=== PATIENT | male | born 1945 | race Caucasian/White ===

== ENCOUNTER → 2016-05-29 | Outpatient (CLI) | payer MEDICARE ==
--- NOTE | 2016-05-29 13:08 | XR ---
EXAMINATION TYPE: XR KUB DATE OF EXAM: 05/29/2016 11:56 AM CLINICAL HISTORY: Bladder stone per patient treated with lithotripsy February. Back pain currently pe r patient. TECHNIQUE: 2 supine KUB images of the abdomen are. COMPARISON: CT urogram January 26, 2016. FINDINGS: There is 4 mm calculus mid to lower pole level right kidney redemonstrated felt stable. Jose tral calcifications left kidney are vascular in etiology on comparison CT. There is interval marked i mprovement in large posterior dependent bladder calculus after lithotripsy. Some small rounded densit ies in the pelvis favor phleboliths. There is overall nonobstructive bowel gas pattern. Lung bases are clear. Multilevel spurring in the t horacolumbar spine is redemonstrated. IMPRESSION: Interval successful lithotripsy of large bladder calculus.
== END ==
LOC: RADXRMAIN 11:37
PROVIDERS: ATTEND Urology
DX: N21.0 Calculus in bladder (principal)
CPT/HCPCS: 74000

== ENCOUNTER → 2016-05-30 | Outpatient (CLI) | payer MEDICARE ==
--- NOTE | 2016-05-30 10:58 | US ---
EXAMINATION TYPE: US abdomen limited DATE OF EXAM: 05/30/2016 10:41 AM COMPARISON: NONE CLINICAL HISTORY: Abdominal Aortic Aneurysm I71.4. EXAM MEASUREMENTS: There is a focal area of aneurysm involving the distal the mid aorta with a questi onable intimal flap. Measures a maximal dimension of 4.2 cm. Additional areas of atherosclerotic sosa ges are seen. Remaining portion of the aorta demonstrates no sizable aneurysm. Report was immediately telephoned to the patient's physician. CT stat of the aorta recommended. IMPRESSION: 1. Abnormal ultrasound which appears represent a 4.2 cm aneurysm increased in size from the previous CT urogram measured 3.1 cm. On today's exam is a question of an intimal flap or calcified plaque. A l ocalized dissection is not excluded. Stat CT scan recommended.
== END | disposition home or self-care (01) ==
LOC: RADUSWWP 10:12
PROVIDERS: ATTEND Family Medicine
DX: I71.4 Abdominal aortic aneurysm, without rupture (principal)
CPT/HCPCS: 93979

== ENCOUNTER → 2016-05-30 | Outpatient (CLI) | payer MEDICARE ==
[2016-05-30 14:43] LABS: Blood Urea Nitrogen 22 mg/dL (9-20); Non-African American GFR(MDRD) >60 (>60 ml/min/1.73 sqM)
--- NOTE | 2016-05-30 15:46 | CT ---
EXAMINATION TYPE: CT angio abd aorta wo/w con DATE OF EXAM: 05/30/2016 3:32 PM COMPARISON: Aortic ultrasound earlier today. CT urogram January 26, 2016. HISTORY: AAA, abnormal ultrasound CT DLP: 2254 mGycm, Automated Exposure Control for Dose Reduction was Utilized. CONTRAST: CTA scan of the abdomen and pelvis is performed without oral and without and with IV Contrast, patien t injected with 100 ml mL of Omnipaque 350. Three-D reconstructed images are created on independent w orkstation and reviewed FINDINGS: VASCULAR: There is moderate mixed plaque in the abdominal aorta redemonstrated. No linear hypodensity to suggest dissection is evident. There is aneurysm measuring up to 3.1 x 2.8 cm transversely on axi al image 46 redemonstrated not significantly changed from CT. No aneurysm narrowing 4.2 cm this ident ified as suspected on recent ultrasound, suspect false measurement related to obliquity. Some promine nce of the common iliac arteries bilaterally is present. There is satisfactory flow in the common as well as internal and external iliac arteries as well as in the common and proximal superficial and de ep femoral arteries bilaterally without significant stenosis. There is patent celiac axis, SMA, bilat eral single renal arteries, and MALENA identified. No greater than 50% stenosis is seen. LUNG BASES: Dependent atelectatic change in both lung bases is redemonstrated.. LIVER/GB: No significant abnormality is appreciated. PANCREAS: No significant abnormality is seen. SPLEEN: No significant abnormality is seen. ADRENALS: No significant abnormality is seen. KIDNEYS: There is stable 4 mm calculus posteriorly mid to lower pole level right kidney on axial imag e 39. There is stable 2 cm simple appearing cyst posterior medially upper to mid pole level left kidn ey on series 11 image 34. Bladder is not greatly distended tended. There is mild to moderate concentr ic wall thickening with mild surrounding fat stranding, a cystitis needs to BE considered in appropri ate clinical setting. Otherwise other etiologies need to be excluded. Right-sided pelvic phlebolith i s redemonstrated. BOWEL: Sigmoid colonic diverticulosis is redemonstrated. PROSTATE/SEMINAL VESICLES: Central zone calcifications are seen in normal size prostate gland. LYMPH NODES: No greater than 1cm abdominal or pelvic lymph nodes are appreciated. OSSEOUS STRUCTURES: Multilevel spurring in the spine is redemonstrated. Facet arthropathy lower lumba r levels is noted. OTHER: No significant additional abnormality is seen. IMPRESSION: Stable 3.1 cm aneurysm to the abdominal aorta. Attention to bladder, clinical correlation for acute cystitis advised.
== END | disposition home or self-care (01) ==
LOC: RADCTMAIN 13:51
PROVIDERS: ATTEND Family Medicine
DX: I71.4 Abdominal aortic aneurysm, without rupture (principal)
CPT/HCPCS: 82565; 84520; 75635; 36415; Q9967; 93979

== ENCOUNTER 2018-01-02 10:41 | Day surgery (SDC) | payer MEDICARE ==
[2017-12-31 11:22] VITALS: BMI 31.6
[2018-01-02 11:15] VITALS: RESP 16; TEMP 97.3
[2018-01-02] MEDS ORDERED: LACTATED RINGERS 1,000 ML IV ONE (11:18)
[2018-01-02] MEDS ORDERED: LIDOCAINE 1% 20 ML VIAL (10MG/ML) FOR IV START INTRADERMA ONE (11:19)
[2018-01-02] MEDS ORDERED: PROPOFOL 10 MG/ML 20 ML VIAL IV ONE (11:54)
[2018-01-02] MEDS ORDERED: LIDOCAINE 1% INJ 10MG/ML (20 ML MDV) ONE (11:54)
--- NOTE | 2018-01-02 12:08 | P.PCN ---
Date of Procedure: 01/02/18 Procedure(s) Performed: BRIEF HISTORY: Patient is a 72-year-old pleasant male, scheduled for an elective colonoscopy as a part of value should of prior history of colon polyps. Colonoscopy was in 5 years ago. PROCEDURE PERFORMED: Colonoscopy. PREOPERATIVE DIAGNOSIS: History of colon polyps. IV sedation per Anesthesia. PROCEDURE: After informed consent was obtained, the patient, was brought into the endoscopy unit. IV sedation was administered by Anesthesia under continuous monitoring. Digital rectal examination was normal. Initially the Olympus CF- 160 flexible video colonoscope was then inserted in the rectum, gradually advanced into the cecum without any difficulty. Careful examination was performed as the scope was gradually being withdrawn. Ileocecal valve and the appendiceal orifice were visualized and appeared normal. Prep was excellent. Mucosa of the cecum, ascending colon, transverse colon, descending colon, sigmoid colon, and rectum appeared normal. Scattered sigmoid diverticulosis. Retroflexion was performed in the rectum and no lesions were seen. The patient tolerated the procedure well. IMPRESSION: Normal-appearing colon from rectum to cecum with no evidence of colorectal neoplasia. Scattered sigmoid diverticulosis. RECOMMENDATIONS: Findings of this examination were discussed with the patient as well as his family. He was advised to have a repeat surveillance colonoscopy in 5 years because of the prior history of colon polyps..
[2018-01-02] MEDS ORDERED: LACTATED RINGERS 1,000 ML IV SCH (12:16)
[2018-01-02] MEDS ORDERED: LIDOCAINE 1% 20 ML VIAL (10MG/ML) FOR IV START INTRADERMA PRN (12:16)
[2018-01-02 12:41] VITALS: BP 184/89; PULSE 51
== END 2018-01-02 12:57 | disposition home or self-care (01) ==
LOC: ORWHC2ENDO 10:41
PROVIDERS: ATTEND Internal Medicine Gastroenterology
DX: K57.30 Diverticulosis of large intestine without perforation or abscess without bleeding (principal); N40.0 Benign prostatic hyperplasia without lower urinary tract symptoms; I10 Essential (primary) hypertension; E78.5 Hyperlipidemia, unspecified; Z79.899 Other long term (current) drug therapy; Z86.010 Personal history of colon polyps; Z87.891 Personal history of nicotine dependence
CPT/HCPCS: 45378; J2001; J2704

== ENCOUNTER → 2023-08-28 | Outpatient (CLI) | payer MEDICARE ==
[2023-08-28 09:11] LABS: African American GFR (CKD) 83 (>60 ml/min/1.73 sqM); Blood Urea Nitrogen 20 mg/dL (9-20); Non-African American GFR(CKD) 72 (>60 ml/min/1.73 sqM)
--- NOTE | 2023-08-28 10:32 | CT ---
EXAMINATION TYPE: CT chest w con DATE OF EXAM: 08/28/2023 COMPARISON: None HISTORY: Chronic cough CT DLP: 736 mGycm Automated exposure control for dose reduction was used. CONTRAST: CT scan of the chest is performed with IV Contrast, patient injected with 100 mL of Isovue 300. FINDINGS: LUNGS: The lungs are grossly clear, there is no concerning parenchymal mass or nodule identified. T here is no pleural effusion or pneumothorax seen. The tracheobronchial tree is patent. MEDIASTINUM: There are no greater than 1 cm hilar or mediastinal lymph nodes. No pericardial effusi on is seen. Aorta is of normal caliber. There is irregular plaque noted at the level of the aortic ar ch seen best on image 20 of 69. No definite dissection noted at this point in time however this could develop into a dissection. I do recommend CTA of the thoracic aorta and 24 hours. Mural plaque noted within the descending thoracic aorta. Mild cardiomegaly. Small hiatal hernia noted. UPPER ABDOMEN: No significant abnormality appreciated. OTHER: No additional significant abnormality is seen. IMPRESSION: 1.There is irregular plaque noted at the level of the aortic arch seen best on image 20 of 69. No def inite dissection noted at this point in time however this could develop into a dissection. I do recom mend CTA of the thoracic aorta and 24 hours.
--- NOTE | 2023-08-28 10:38 | CT ---
EXAMINATION TYPE: CT sinus wo con DATE OF EXAM: 08/28/2023 COMPARISON: NONE HISTORY: Chronic sinusitis and chronic cough CT DLP: 498 mGycm. Automated Exposure Control for Dose Reduction was Utilized. TECHNIQUE: CT scan of the sinuses is performed without contrast, axial images are obtained, coronal r eformatted images are also reviewed. FINDINGS: The paranasal sinuses including the frontal, ethmoid, sphenoid, and maxillary sinuses bila terally are well-aerated without abnormal opacification or suspicious air-fluid levels. The ostiomea sneha complex is patent bilaterally on the coronal images. Left-sided cortical buckle is present. Visualized brain parenchyma is unremarkable. No suspicious opa cification of the mastoid air cells. IMPRESSION: The paranasal sinuses are clear and the ostiomeatal complex is patent bilaterally.
== END | disposition home or self-care (01) ==
LOC: RADCTMAIN 08:21
PROVIDERS: ATTEND Internal Medicine
DX: J32.9 Chronic sinusitis, unspecified (principal); J34.89 Other specified disorders of nose and nasal sinuses; Q25.49 Other congenital malformations of aorta
CPT/HCPCS: 82565; 84520; 71260; 36415; 70486; Q9967

== ENCOUNTER → 2023-08-29 | Outpatient (CLI) | payer MEDICARE ==
[2023-08-29 11:42] LABS: African American GFR (CKD) 78 (>60 ml/min/1.73 sqM); Blood Urea Nitrogen 20 mg/dL (9-20); Non-African American GFR(CKD) 68 (>60 ml/min/1.73 sqM)
--- NOTE | 2023-08-29 12:43 | CT ---
EXAMINATION TYPE: CT angio chest CT DLP: 1145 mGycm, Automated exposure control for dose reduction was used. DATE OF EXAM: 08/29/2023 12:26 PM COMPARISON: CT chest 08/28/2023, CTA abdomen 05/30/2016. CLINICAL INDICATION:Male, 77 years old with history of I71.20 thoracic aneurysm; aneurysm TECHNIQUE/CONTRAST: CTA scan of the thorax is performed without and with IV Contrast, patient injected with 100ml mL of I sovue 370, thoracic aneurysm protocol. MIP and 3-D images are created and reviewed. FINDINGS: Lungs/Pleura: No evidence of focal consolidation, pleural effusion or pneumothorax. Mild bibasilar slater bpleural reticular opacities redemonstrated likely representing a component of fibrosis. No suspiciou s pulmonary nodule or mass. Airway: Large airways are patent. Heart: Heart is within normal limits for size. No pericardial effusion. Vasculature: Atherosclerotic calcification of the aorta and its branches. There is mural plaquing dem onstrated throughout the aorta. This demonstrates a similar appearance within the aortic arch. Conven tional aortic arch branching. Mild narrowing at the origin of the left subclavian artery secondary to calcified and noncalcified plaque. No thoracic aortic aneurysm. Redemonstration of fusiform infraren al abdominal aortic aneurysm measuring 5.0 x 4.8 cm. Previously measured 3.1 x 2.8 cm in 05/30/2016 [facility]. There is some mural pleural thrombus identified. The bilateral single renal arteries are patent. There is a mild stenosis of the origin of the SMA and celiac axis secondary to calcified and noncalc ified plaque. The visualized portion of the origin of the MALENA is patent. No evidence for intramural h ematoma or dissection. No evidence for pulmonary embolism. Mediastinum: No gross evidence of adenopathy. Musculoskeletal: No acute osseous abnormalities. Osteoarthritic remote changes of both shoulders. Rem ote posterior right-sided rib fractures. Multilevel degenerative changes of the visualized thoracolum bar spine. Soft Tissues: Asymmetrical gynecomastia with left greater than right. Lower neck: No significant findings. Upper Abdomen: Cholelithiasis. Left renal cyst measuring 3.4 cm. Trace chastity mesentery redemonstrated . IMPRESSION: 1. Progression of infrarenal abdominal aortic aneurysm now measuring 5.0 x 4.8 cm. Previously measure d 3.1 x 2.8 cm on 05/30/2016 exam. Vascular surgery consultation is recommended. 2. No thoracic aortic aneurysm. No evidence for intramural hematoma or dissection. Similar appearance of calcified and noncalcified plaque throughout the visualized aorta with continued irregular plaque noted at the level of the aortic arch. 3. Cholelithiasis.
== END | disposition home or self-care (01) ==
LOC: RADCTMAIN 10:51
PROVIDERS: ATTEND Internal Medicine
DX: I71.43 Infrarenal abdominal aortic aneurysm, without rupture (principal); I71.20 Thoracic aortic aneurysm, without rupture, unspecified; I70.0 Atherosclerosis of aorta; K80.20 Calculus of gallbladder without cholecystitis without obstruction
CPT/HCPCS: 82565; 84520; 71275; 36415; Q9967

== ENCOUNTER → 2023-12-25 | Outpatient (CLI) | payer MEDICARE | END | disposition home or self-care (01) | LOC: LABWHC1 14:15 | PROVIDERS: ATTEND Orthopaedic Surgery | CPT/HCPCS: 36415; 86850; 86900; 86901; 87070; 93005 ==

== ENCOUNTER → 2023-12-31 | Outpatient (CLI) | payer MEDICARE ==
--- NOTE | 2023-12-31 11:56 | NM ---
EXAMINATION TYPE: NM stress cardiolite complete DATE OF EXAM: 12/31/2023 COMPARISON: NONE CLINICAL INDICATION: Male, 78 years old with history of I44.4 L anterior fasciular block; TECHNIQUE: After the intravenous administration of 10.03 mCi Tc 99m Sestamibi - Rest images obtained 45 minutes post injection. The patient exercised using a WILLOW protocol and 1 minute prior to peak exercise was injected with 26.7 mCi Tc 99m Sestamibi - Stress images obtained 45 minutes post inject ion. FINDINGS: Targeted heart rate was achieved during performance of the study. Review of stress and rest SPECT karo ges demonstrates reduced uptake involving wall on both stress and rest images which may be artifactua l. There is a reduced intensity of uptake in the apical lateral margin of the myocardium on stress im ages relative to rest images. A small area of stress-induced reversibility not excluded. Correlate cl inically.. Gated analysis shows normal wall motion with an estimated left ventricular ejection fract ion of 69 %. Report called to referring clinician 11:53 AM 12/31/2023. IMPRESSION: There is a question of a small area of reversible ischemia involving the apical lateral portion of th e myocardium. Would recommend correlation clinically. [facility], , 12/31/2023 11:54 AM
--- NOTE | 2023-12-31 14:43 | CA ---
Lexiscan Nuclear Stress Test Report Name: Candelario Canales Exam Date: 12/31/2023 08:49 Exam Location: [facility] Ht (in): 69 Wt (lb): 210 BSA: 2.11 Ordering Phys: Dutch Ramon MD Referring Phys: Dutch Ramon MD Technologist: Blu Watts Age: 78 Gender: M : 1945 Procedure CPT: Indications: I44.4 L anterior fascicular block ICD-10 Codes: Patient History: Medications: Meds past 24 hrs: Pretest Chest Pain: STRESS TEST Lexiscan Protocol Exercise Duration (min:sec): 01:[address] Depressions (mm): Angina Score: Camara Score: Resting HR (bpm): 75 Peak HR (bpm): 87 Resting BP (mmHg): 179 / 97 Peak BP (mmHg): 137 / 69 MPHR: 143 Target HR: 122 % MPHR: 61 METS: 1.0 Total Dose: Peak Dose: Atropine: Double Product: 74419 BP Response: Stress Termination: INFUSION COMPLETE Stress Symptoms: NO SYMPTOMS Stress Summary: ECG ANALYSIS Resting ECG: Stress ECG: CONCLUSIONS At baseline EKG showed normal sinus rhythm, normal axis, no significant ST or T wave abnormalities. Patient recieved IV infusion of Lexiscan 0.4mg and at peak infusion EKG showed no significant change from baseline. Conclusions: 1. Normal EKG response to Lexiscan infusion 2. Nuclear imaging to be reported separately. Dr. Pranav Perry DO (Electronically Signed) Final Date: 31 December 2023 14:43
== END | disposition home or self-care (01) ==
LOC: RADNMMAIN 07:37
PROVIDERS: ATTEND Family Medicine
DX: I44.4 Left anterior fascicular block
CPT/HCPCS: 78452; 93017

== ENCOUNTER 2024-01-08 10:06 | Day surgery (SDC) | payer MEDICARE ==
[2024-01-07 11:31] VITALS: BMI 31.0
[~2024-01-08 10:06] MED LIST: ALPRAZolam 0.25 MG TAB PO PRN; ALPRAZolam 0.5 MG TAB PO PRN; HEPARIN SODIUM,PORCINE (1 ML) 2,500 UNIT in SODIUM CHLORIDE 0.9% 250 ML IRRIGATION PRN; HEPARIN SODIUM,PORCINE 10,000 UNIT in SODIUM CHLORIDE 0.9% 1,000 ML IRRIGATION PRN; NITROGLYCERIN SL TABS 0.4 MG TAB SUBLINGUAL PRN
[2024-01-08] MEDS: IV FLUID CONTINUATION 1,000 ML IV ONE (10:29)
[2024-01-08] MEDS: ASPIRIN 325 MG TAB PO STA (10:32)
[2024-01-08] MEDS: SODIUM CHLORIDE 0.9% 1,000 ML in EMPTY BAG 1 BAG IV SCH (10:33)
[2024-01-08] MEDS: ATORVASTATIN 80 MG TAB PO STA (10:43)
[2024-01-08 11:04] VITALS: RESP 16; TEMP 98
[2024-01-08] MEDS: fentaNYL (PF) 50 MCG/ML 2 ML AMP IVP ONE (12:04)
[2024-01-08] MEDS: MIDAZOLAM 2 MG/2 ML VIAL IVP ONE (12:04)
[2024-01-08] MEDS: LIDOCAINE 1% INJ 10MG/ML (20 ML MDV) SQ ONE (12:04)
[2024-01-08] MEDS: VERAPAMIL SYRINGE (5 MG/10 ML) INTRAARTER ONE (12:06)
[2024-01-08] MEDS: HEPARIN SODIUM 1,000 UN/ML (10ML VL) IVP ONE (12:09)
[2024-01-08] MEDS: IOPAMIDOL-370 100ML BTL INJ ONE (12:26)
--- NOTE | 2024-01-08 12:41 | P.CARDCATH ---
Date of Procedure: 01/08/24 Description of Procedure: DIAGNOSTIC CORONARY ANGIOGRAPHY and LEFT HEART CATH REPORT PROCEDURES PERFORMED: Left heart catheterization Selective coronary angiography Moderate conscious sedation 22 mins Right radial access INDICATION: Preoperative cardiac assessment. Abnormal stress test HPI History of hypertension, dyslipidemia. Perioperative cardiac assessment for hip surgery. Abnormal Lexiscan nuclear stress test showing anterolateral wall reversible perfusion defect moderate size moderate intensity mid to distal wall. CONSENT: I have explained the procedural steps of above-mentioned procedures in layman's terms to the patient. I discussed the risks (including but not limited to stroke, emergent vascular or cardiac surgery or ), benefits and alternative therapies for the above-mentioned procedure. I discussed the risks of sedation/analgesia and blood product administration (if indicated). The patient has indicated understanding and acceptance of these risks. Conscious Sedation: Patient's ECG, heart rate, blood pressure, pulse oximetry were monitored throughout the duration of procedure under my direct supervision. [2] mg Versed and [50] mcg Fentanyl were used for induction of moderate conscious sedation. Total duration of moderate concious sedation 22 minutes. PROCEDURE: After explaining the risks, benefits and alternatives of the above mentioned procedures in detail to the patient, informed consent was obtained. Patient was taken to the catheterization lab, prepped and draped in usual sterile fashion using universal precuations. Ultrasound was used to identify the radial artery. 1% lidocaine was infiltrated over the right radial artery. A 6-Mongolian sheath was placed and secured in the right radial artery using modified Seldinger technique. The sheath was flushed and 5 mg verapamil was administered intra-arterially. J tipped wire was advanced under fluoroscopic guidance. Once the wire tip reached aortic root 6000 units of IV heparin was given. Over the wire JR4 diagnostic catheter was advanced. The wire in place the catheter was manipulated to cross the aortic valve and entered into LV under fluoroscopy guidance. The wire was removed and the catheter was flushed. LV pressures were obtained and pullback was performed under fluoroscopy. Catheter was manipulated to selectively engage the right coronary ostium. Right coronary angiography was performed in different angiographic projections. The JR4 diagnostic catheter was exchanged for a JL 4 diagnostic catheter over the J-wire. The JR4 catheter could not engage the left coronary ostium. This was exchanged for a 5 Mongolian JL 3.5 diagnostic catheter. This was manipulated to selectively engage the left coronary ostium. The wire was removed, catheter was flushed and manipulated under fluoroscopy to selectively engaged the left coronary ostium. Left coronary angioplasty was performed in different angiographic projections. Catheter was removed over the wire. Radial sheath was flushed. The right radial sheath was removed and a TR band was placed with excellent patent hemostasis was achieved. The patient tolerated the procedure well. Patient was transported back to the post catheterization holding area in stable condition. Angiographic images were reviewed in detail. HEMODYNAMICS: Aortic Pressure: 128/60 mmHg. LV pressure: 130/5 mmHg. LVEDP 9 mmHg. There was no significant gradient across the aortic valve. SELECTIVE CORONARY ARTERIOGRAPHY: LEFT MAIN: The left main is short and large caliber vessel. It bifurcates into the LAD and circumflex. Left main appears angiographically normal. LEFT ANTERIOR DESCENDING CORONARY ARTERY: LAD is a large caliber vessel which wraps around to the apex. Proximal LAD has mild luminal irregularities and is otherwise patent. It gives rise to a large diagonal branch which has 20 to 30% mild luminal irregularities. It is otherwise angiographically patent. Mid and distal LAD is otherwise patent with mild luminal irregularities. LEFT CIRCUMFLEX CORONARY ARTERY: It is nondominant vessel. LCx is a large- caliber vessel. Proximal LCx has mild mid irregularities. It gives rise to a large OM branch which has mild to moderate irregularities. After giving OM branch, LCx gives a medium size AV groove branch which has mild luminal irregularities. Distal AV groove branch gives small OM branches. RIGHT CORONARY ARTERY: Dominant vessel. The right coronary artery is medium caliber vessel. Proximal RCA has 20% diffuse luminal irregularities. Mid RCA has 30% diffuse luminal irregularities. Distal RCA has 50 to 60% disease. It gives rise to a small PDA and PL branch. PL branch has mild diffuse disease. 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 Mild luminal irregularities in other coronary vessels. Mild proximal LAD calcification noticed. Normal left sided filling pressures PLAN: Treat patient medically. Continue aspirin, Lipitor. Optimize blood pressure. Increase amlodipine from 2.5 mg to 5 mg daily. Continue bisoprolol and HCTZ 10/ 6.25 mg Monitor blood pressure and heart rate. Maintain a blood pressure log and showed to me on clinic follow-up. Cleared to undergo surgery. 125 cc/h for 4 hours of normal saline. Discharged home in 4 hours. Outpatient follow-up with Dr. Montesinos Performing Physician Moises Montesinos MD, [facility], [facility] Thank you for allowing [facility] to participate in this patient's care. Feel free to reach out in case of any followup questions.
--- NOTE | 2024-01-08 12:44 | P.EN ---
Letter for the patient Today I performed a left heart catheterization and coronary angiogram for Mr. Canales. It was done via right radial approach. We did not encounter any major complications. We did not encounter any major blood loss. He tolerated the procedure very well. He did not have any immediate post procedure complications. He should be okay to be discharged home in next 3 to 4 hours. He is okay to undergo his hip surgery. He does have 50 to 60% disease in his right coronary artery which does not necessarily need a stent to be placed. We will treated medically with good blood pressure control, aspirin and cholesterol control. Once he has completed his surgery and he is more mobile, we will reevaluate his symptoms and see if he has any exertional chest pain or shortness of breath. If I would have chosen to do a stent today, he would have been on 2 blood thinners and we have to delay the surgery for next 6 months. He does not have any strong indication for getting a stent at this time. To prevent the progression of this 50 to 60% disease I will recommend him to have a very tight blood pressure control. I do want his blood pressure goal to be 120 over 70 mmHg. I want him to maintain a blood pressure log and show it to me in the clinic. If we need to we will have to go up on his blood pressure medications. Follow-up with me in clinic for further recommendations.
[2024-01-08] MEDS ORDERED: SODIUM CHLORIDE 0.9% 1,000 ML IV SCH (12:45)
[2024-01-08] MEDS ORDERED: RX INFO: IV CONTRAST WAS GIVEN 1 EACH MISC MISCELLANE PRN (12:45)
[2024-01-08 15:19] VITALS: BP 139/75; PULSE 68
== END 2024-01-08 16:10 | disposition home or self-care (01) ==
LOC: CATHCVL 10:06
PROVIDERS: ATTEND Student in an Organized Health Care Education/Training Program
DX: R94.39 Abnormal result of other cardiovascular function study (principal); I10 Essential (primary) hypertension; E78.5 Hyperlipidemia, unspecified; F17.210 Nicotine dependence, cigarettes, uncomplicated; Z01.810 Encounter for preprocedural cardiovascular examination; Z82.49 Family history of ischemic heart disease and other diseases of the circulatory system; Z79.899 Other long term (current) drug therapy
CPT/HCPCS: 93458; 99152; 99153; C1769 ×2; C1894; J2250; J2003; J3010; J1644; Q9967

== ENCOUNTER → 2024-02-17 | Outpatient (CLI) | payer MEDICARE ==
[2024-02-17 11:52] LABS: INR 0.9 (<1.2); Partial Thromboplastin Time 22.8 sec (22.0-30.0); Prothrombin Time 10.4 sec (10.0-12.5)
[2024-02-17 15:42] LABS: HCT 46.9 % (39.6-50.0); HGB 15.9 g/dL (13.0-17.0); MCH 31.4 pg (27.0-32.0); MCHC 33.9 g/dL (32.0-37.0); MCV 92.7 FL (80.0-97.0); NRBC Per 100 WBC 0 X 10*3/uL (0.00-0.01); Platelet Count 227 X 10*3/uL (140-440); RBC 5.06 X 10*6/uL (4.40-5.60); RDW 13.1 % (11.5-14.5); WBC 8.59 X 10*3/uL (4.50-10.00)
[2024-02-17 16:04] LABS: ALT 16 U/L (10-49); AST 14 U/L (14-35); Albumin 4.5 g/dL (3.8-4.9); Albumin/Globulin Ratio 1.73 Ratio (1.60-3.17); Alkaline Phosphatase 83 U/L (41-126); Blood Urea Nitrogen 19.2 mg/dL (9.0-27.0); Calcium 9.5 mg/dL (8.7-10.3); Carbon Dioxide 24.8 mmol/L (21.6-31.8); Chloride 100 mmol/L (96-109); Globulin 2.6 g/dL (1.6-3.3); Glucose 107 mg/dL (70-110); Potassium 4.2 mmol/L (3.5-5.5); Sodium 137 mmol/L (135-145); Total Bilirubin 0.7 mg/dL (0.3-1.2); Total Protein 7.1 g/dL (6.2-8.2)
== END | disposition home or self-care (01) ==
LOC: LABWHC1 11:16
PROVIDERS: ATTEND Orthopaedic Surgery
DX: Z01.812 Encounter for preprocedural laboratory examination (principal); M16.11 Unilateral primary osteoarthritis, right hip; Z22.322 Carrier or suspected carrier of Methicillin resistant Staphylococcus aureus
CPT/HCPCS: 80053; 85027; 85610; 85730; 86850; 86900; 86901; 87070; 93005

== ENCOUNTER 2024-02-24 07:06 | Day surgery (SDC) | payer MEDICARE ==
[~2024-02-24 07:06] MED LIST changes: -ALPRAZolam 0.25 MG TAB PO PRN; -ALPRAZolam 0.5 MG TAB PO PRN; -HEPARIN SODIUM,PORCINE (1 ML) 2,500 UNIT in SODIUM CHLORIDE 0.9% 250 ML IRRIGATION PRN; -HEPARIN SODIUM,PORCINE 10,000 UNIT in SODIUM CHLORIDE 0.9% 1,000 ML IRRIGATION PRN; -NITROGLYCERIN SL TABS 0.4 MG TAB SUBLINGUAL PRN; +TRANEXAMIC 1,000 MG/100ML-NACL 1,000 MG in SALINE 1 100ML.BAG IVPB PRN
[2024-02-24] MEDS: IV FLUID CONTINUATION 1,000 ML IV ONE (07:30)
[2024-02-24] MEDS: LACTATED RINGERS 1,000 ML BAG IV STA (08:03)
[2024-02-24] MEDS: ACETAMINOPHEN TAB 500 MG TAB PO PRN (08:04)
[2024-02-24] MEDS: MELOXICAM 7.5 MG TAB PO PRN (08:04)
[2024-02-24] MEDS: DEXAMETHASONE SOD PHOSPHATE 4 MG/ML 1 ML VIAL IVP STA (08:06)
[2024-02-24] MEDS: ONDANSETRON 4 MG/2 ML VIAL IVP STA (08:06)
[2024-02-24] MEDS: GABAPENTIN 300 MG CAP PO PRN (08:08)
[2024-02-24] MEDS ORDERED: HYDROmorphone 0.5 MG/0.5 ML SYRINGE IVP PRN ×2 (08:44)
[2024-02-24] MEDS ORDERED: NALOXONE 0.4 MG/ML 1 ML VIAL IV PRN (08:44)
[2024-02-24] MEDS ORDERED: MAGNESIUM HYDROXIDE 2,400 MG/30 ML CUP PO PRN (08:44)
[2024-02-24] MEDS ORDERED: ONDANSETRON 4 MG/2 ML VIAL IVP PRN (08:44)
[2024-02-24] MEDS ORDERED: HYDROcodone/APAP 7.5-325MG 1 EACH TAB PO PRN (08:46)
[2024-02-24] MEDS: MIDAZOLAM 2 MG/2 ML VIAL IV ONE (08:49)
[2024-02-24] MEDS ORDERED: PHENYLEPHRINE-0.9% NACL SYG 1,000 MCG/10 ML SYRINGE ONE (08:50)
[2024-02-24] MEDS ORDERED: PROPOFOL 10 MG/ML 20 ML VIAL IV ONE (08:50)
[2024-02-24] MEDS ORDERED: fentaNYL (PF) 50 MCG/ML 2 ML AMP ONE (08:50)
[2024-02-24] MEDS ORDERED: MIDAZOLAM 2 MG/2 ML VIAL ONE (08:50)
[2024-02-24] MEDS ORDERED: ROPIVACAINE 5 MG/ML 30 ML VIAL ONE (08:50)
[2024-02-24] MEDS ORDERED: TRANEXAMIC 1,000 MG/100ML-NACL PREMIX BAG ONE (08:50)
[2024-02-24] MEDS ORDERED: DEXAMETHASONE SOD PHOSPHATE 4 MG/ML 1 ML VIAL ONE (08:50)
[2024-02-24] MEDS: ceFAZolin 1,000 MG in SODIUM CHLORIDE 0.9% 1,000 ML IRRIGATION ONE (08:55)
[2024-02-24] MEDS: ROPIVACAINE 5 MG/ML 30 ML VIAL MISCELLANE ONE ×2 (09:02→09:59)
--- NOTE | 2024-02-24 10:06 | P.OP ---
Date of Procedure: 02/24/24 Preoperative Diagnosis: Severe osteoarthritis, right hip Postoperative Diagnosis: Severe osteoarthritis, right hip Procedure(s) Performed: Right total hip arthroplasty with a direct anterior approach Implants: [employer] Polarstem standard size 6 with a collar [employer] R3, 3 hole hemispherical acetabular shell, 56 mm [employer] Reflection 6.5 mm cancellus screws, 20 mm 2 [employer] R3, XLPE 20 acetabular liner [employer] Oxinium femoral head 36 mm, +8 All components were press-fit. The articulation is Oxinium on polyethylene. Anesthesia: spinal Surgeon: Lukas Ruiz Leather Lacer #1: Destiny Stallings Estimated Blood Loss (ml): 200 Pathology: none sent Condition: stable Disposition: PACU Indications for Procedure: After failure of conservative treatment we discussed the surgical and no nsurgical treatment options at length. Patient wishes to proceed with a total hip arthroplasty with a direct anterior approach. Complications specific to this procedure were discussed at length, including but not limited to infection, leg length discrepancy, dislocation, nerve injury, and fracture. Covid-19 was also discussed at length with the patient, and they are aware of the current policies and procedures. The patient was given the option of delaying surgery, but they elect to proceed knowing these risks. Patient is aware of all these complications and informed consent was obtained Operative Findings: The operative findings are consistent with severe osteoarthritis of the right hip Description of Procedure: The patient was seen and evaluated in the preoperative area and the consent was reviewed. The operative site was marked with a skin marker. The patient verified the procedure and operative site. A GEN block was placed by anesthesia in the preoperative area. The patient was then brought to the operating room and given preoperative antibiotics intravenously. 1 g of Tranexamic acid was also given intravenously. A spinal anesthetic was administered by the anesthesia department. The patient was then placed on the Westfield table with the bony prominences well-padded. The hip area was then prepped with a ChloraPrep solution and draped in the usual sterile fashion. A universal timeout was then performed, which confirmed the patient's name, surgical site, ALLERGIES, and procedure being performed on the consent. Next the incision site was located at 1 cm distal and 4 cm lateral to the anterior superior iliac spine. The skin and subcutaneous tissues were sharply incised. Incision was carefully dissected down to the fascia overlying the tensor fascia issac muscle. This fascia was then incised in line with the muscle fibers. Care was taken to stay laterally in order to avoid injuring the lateral femoral cutaneous nerve. Next, using blunt finger dissection, the tensor fascia issac muscle was dissected off its investing fascia. The muscle was then carefully retracted laterally with a cobra retractor over the lateral neck of the femur. Next, the circumflex vessels were identified and cauterized using the Aquamantis device. The anterior hip capsule was then exposed. The capsule was then opened and an inverted T fashion. The retractors were then placed intracapsularly. The retractors were maintained intracapsular throughout the procedure. The proximal femur was then visualized. Fluoroscopic x-rays were then taken in order to evaluate the preoperative leg lengths. A small amount of traction was placed on the leg. The femoral neck was then osteotomized at the appropriate level above the lesser trochanter. A small wedge of bone was then removed from the remaining femoral head. Next, using a corkscrew the femoral head was removed from the acetabulum. On gross visual inspection, the femoral head had complete loss of articular cartilage and multiple periarticular osteophytes. The femoral head was then measured. Attention was then turned to the acetabulum. The acetabulum was exposed and any remaining labrum was excised. Sequential reaming of the acetabulum was performed using fluoroscopic guidance until there was a good bed of bleeding cancellus bone. When the appropriate size was reached, a trial was then placed. The position and fit of the trial was checked with fluoroscopy. The trial was then removed. Then, using fluoroscopic guidance, the final implant was impacted at 20 of anteversion and 40 of abduction, and fully seated in the acetabulum. 2 screws were then placed in the acetabulum. Again fluoroscopy was used to check position of the screws. Next, the liner was then impacted, with a 20 elevated liner located in the anterior superior quadrant. Component locking was confirmed. Attention was then directed to the femur. With the aid of the Westfield table, the femur was externally rotated to approximately 130, extended, and adducted under the opposite leg. A side hook was then placed under the proximal femur, and the side hook elevator was used to elevate the proximal femur while releasing the capsule. Retractors were then placed. A capsular release was performed, as well as a release of the conjoined tendon, which afforded excellent visualization of the proximal femur. Next, a box osteotome was used to lateralize the proximal femur. A punch hand was then used to locate the femoral canal. Sequential broaching was then performed with appropriate size which afforded excellent fixation in the proximal femur. A trial was then placed with appropriate head and neck, and the hip was gently reduced with the aid of the Westfield table. Fluoroscopy was then used to check position of the components, as well as to evaluate the leg lengths and offset. The leg lengths and offset were measured as closely as possible to ensure stability of the hip. The hip was then gently dislocated and the trials were then removed. Final implants were then impacted and the hip was again reduced. Final fluoroscopic x-rays confirmed that the components were in anatomic position. The leg lengths and offset were measured and were found to coincide with the trial measurements. The hip was also taken through range of motion, and found to be stable. The hip was then copiously irrigated with antibiotic solution with pulsatile lavage. The hip was then irrigated with Irrisept solution. The soft tissues were then injected with a ropivacaine solution. A second dose of 1 g of Tranexamic acid was also given intravenously. The fascia was then closed with 2-0 strata fix suture. The subcutaneous tissue was closed with 3-0 Vicryl. The subcuticular tissue was closed with 3-0 moncryl suture. The skin was then closed with Exofin skin glue. After the glue and dried, and Optifoam silver impregnated dressing was applied. The patient was t hen transferred to the recovery room in stable condition. The boilermaker's assistant DEON Alvarez was required due to the complexity of surgery, and the need for skilled instructor adjunct surgical technician for positioning, draping, exposure, retraction, and closure of the wound.
[2024-02-24] MEDS: LACTATED RINGERS 1,000 ML IV ONE (10:22)
--- NOTE | 2024-02-24 10:23 | FL ---
EXAMINATION TYPE: FL guidance operating room, XR Hip Limited RT DATE OF EXAM: 02/24/2024 10:13 AM COMPARISON: Pre Operative Images if available both CT/MRI or plain film CLINICAL INDICATION: Male, 78 years old with history of OA RIGHT HIP; TECHNIQUE: FL guidance operating room, XR Hip Limited RT, multiple fluoroscopic images provided for p rocedure. Total fluoroscopy time: 28.9 seconds Total submitted images to PACS: 3 DAP: 1.6087 mGym2 Gycm2 uGym2 cGycm2 or equivalent. FINDINGS: Fluoroscopic images during internal fixation/arthroplasty demonstrate hardware in appropriate positio n. Hardware appears intact. No immediate complication identified. IMPRESSION: 1. No evidence for intraoperative complication. 2. Please see the operative/procedural note for further details. [facility], , 02/24/2024 10:20 AM
--- NOTE | 2024-02-24 11:17 | XR ---
EXAMINATION TYPE: XR Hip Limited RT DATE OF EXAM: 02/24/2024 11:06 AM COMPARISON: None. CLINICAL INDICATION: Male, 78 years old with history of Status post hip surgery, assess surgical lenny steele, TECHNIQUE: AP view(s) obtained. FINDINGS: Femoral prosthesis is in place. No acute fractures are evident. Acetabular component is present. Post surgical soft tissue changes evident IMPRESSION: 1. No acute fracture post prosthesis placement right hip [facility], , 02/24/2024 11:14 AM
[2024-02-24] MEDS: HYDROmorphone 0.5 MG/0.5 ML SYRINGE IVP PRN (13:13)
[2024-02-24] MEDS: SODIUM CHLORIDE 0.9% 1,000 ML IV SCH (14:58)
--- NOTE | 2024-02-24 17:54 | P.CONS ---
History of Present Illness - Reason for Consult Consult date: 02/24/24 Medical Management Requesting physician: Durga Gonzalez - History of Present Illness History of Presenting Illness: Patient is a very pleasant 78-year-old male with a past medical history of CAD status post stenting, abdominal aortic aneurysm follows Dr. Armond Briones for close monitoring, hypertension, hyperlipidemia, BPH, and hard of hearing with bilateral hearing aids. He is currently admitted under orthopedic surgery team status post right total hip arthroplasty. Surgical procedure was completed by Dr. Ruiz secondary to severe osteoarthritis of right hip. We were consulted for medical management throughout hospitalization. Patient was seen and evaluated in room 452 shortly after completion of surgical procedure. He currently reports moderate right hip pain and RN notified for medication administration. Patient denies having any other complaints at this time including headache, lightheadedness, dizziness, chest pain, palpitations, shortness of breath, cough or congestion, or experiencing any postoperative nausea or vomiting. Patient does report tolerating oral intake with no episodes of nausea or vomiting since completion of surgical procedure. Patient does report mild numbness/tingling remains in right lower extremity but slowly improving. He does report that he has not yet been able to urinate since completion of surgical procedure and expresses he does have a history of BPH. Review of systems: Pertinent positives and negatives as discussed in HPI, a complete review of systems was performed and all other systems are negative. Physical exam: Vital signs reviewed and stable. General: Nontoxic, no distress and appears stated age. Derm: Skin warm and dry, normal coloration for ethnicity. Head: Atraumatic, normocephalic and symmetric. Eyes: EOM's intact, no lid lag, and anicteric sclera Mouth: no lip lesions, mucus membranes moist Cardiovascular: regular rate and rhythm with normal S1S2, no murmur, positive posterior tibial pulses bilaterally, and cap refill < 2 seconds. Lungs: Respirations even, regular, and unlabored on room air. Lungs CTA bilaterally, no rhonchi, no rales, no wheezing, and no accessory muscle usage. Abdominal: soft, nontender to palpation, no guarding, no appreciable organomegaly Ext: No gross muscle atrophy, no edema, no contractures. Movement and sensation intact. Postop dressing/ice pack in place to right lateral hip. Neuro: Speech clear, face symmetrical and CN II-XII grossly intact with no noted focal neuro deficits Psych: Alert and oriented to person, place, time, and situation. Appropriate and pleasant affect. Assessment and Plan of Care: Postoperative urinary retention -Order placed for bladder scan to monitor for urinary retention/postvoid residual. Patient to continue finasteride 5 mg nightly and Flomax 0.4 mg twice daily. Status post right total hip arthroplasty -Management per primary admitting orthopedic surgery team including DVT prophylaxis, pain management, wound/dressing management, weightbearing, and PT/OT. -Patient currently on DVT prophylaxis with aspirin 325 mg twice daily. CAD Abdominal aortic aneurysm Hypertension Hyperlipidemia -Monitor vital signs closely and patient to remain on telemetry monitoring for 24 hours postop. -Continue medication regimen with amlodipine 5 mg nightly and atorvastatin 40 mg nightly. Vital signs reviewed and stable. -Blood pressure 159/92, heart rate 76, respiratory rate 18, temp 97.8 F, and SpO2 of 97% on room air. Thank you for allowing us to participate in the care of this pleasant patient. Do not hesitate to contact us with questions. Someone can be reached from the [facility] hospitalist group all hours of the day at [phone] or via [employer] This document was prepared using [employer] dictation software. Please allow for errors in computer support technician while rare they do occur. Jesus Perla NP rendered care for this patient independently, reviewed the findings and plan as documented in the note above and agree with plan. I did not physically speak with or examine the patient on this date. Past Medical History Past Medical History: Hearing Disorder / Deafness, Hyperlipidemia, Hypertension, Osteoarthritis (OA), Prostate Disorder Additional Past Medical History / Comment(s): Enlarged prostate, abdominal aortic aneurysm-following with Dr Armond Briones, hard of hearing, tinnitus, no hearing aids History of Any Multi-Drug Resistant Organisms: None Reported Past Surgical History: Heart Catheterization, Joint Replacement, Orthopedic Surgery Additional Past Surgical History / Comment(s): Right knee scope X3, right knee r eplacement 2010, right wrist surgery, colonoscopy, cataracts surg with lens implant, heart cath 01/08/24 Past Anesthesia/Blood Transfusion Reactions: No Reported Reaction Additional Past Anesthesia/Blood Transfusion Reaction / Comm: No hx blood transfusion. Smoking Status: Former smoker - Past Family History Mother Family Medical History: Cancer Additional Family Medical History / Comment(s): uterine ca, breast ca Sister(s) Family Medical History: Cancer Additional Family Medical History / Comment(s): breast ca Brother(s) Additional Family Medical History / Comment(s): Ruptured aortic aneurysm was able to be repaired. Medications and Allergies Home Medications Medication Instructions Recorded Confirmed Type Atorvastatin [Lipitor] 40 mg PO HS 12/31/17 02/17/24 History Finasteride [Proscar] 5 mg PO HS 12/31/17 02/17/24 History Multivitamins, Thera [Multivitamin 1 tab PO DAILY 12/31/17 02/17/24 History (formulary)] Tamsulosin [Flomax] 0.4 mg PO BID 12/31/17 02/17/24 History Acetaminophen [Tylenol Extra 500 mg PO Q6H PRN 12/25/23 02/17/24 History Strength] traMADol HCL 50 mg PO Q6H PRN 12/25/23 02/17/24 History Aspirin [Adult Low Dose Aspirin EC] 81 mg PO DAILY 01/07/24 02/17/24 History amLODIPine [Norvasc] 5 mg PO HS 30 Days #30 tab 01/08/24 02/17/24 Rx Losartan-Hctz 50-12.5 mg [Hyzaar 1 tab PO HS 02/17/24 02/17/24 History 50-12.5] Aspirin 325 mg PO BID #60 tab 02/24/24 Rx HYDROcodone/APAP 7.5-325MG [[place] 1 - 2 tab PO Q6H PRN #32 tab 02/24/24 Rx 7.5-325] Sennosides [Senokot] 2 tab PO DAILY PRN #60 tablet 02/24/24 Rx Allergies Allergy/AdvReac Type Severity Reaction Status Date / Time No Known Allergies Allergy Verified 02/24/24 07:36 Physical Exam Vitals: Vital Signs Temp Pulse Resp BP Pulse Ox 02/24/24 13:00 68 16 137/66 95 02/24/24 12:10 74 18 146/78 95 02/24/24 11:40 54 L 24 134/72 96 02/24/24 11:25 61 18 126/68 96 02/24/24 11:10 51 L 15 124/69 96 02/24/24 10:55 58 L 16 132/71 96 02/24/24 10:40 57 L 16 135/73 95 02/24/24 10:25 97.2 F L 61 14 96/57 99 02/24/24 08:46 68 16 137/65 100 02/24/24 07:39 97.4 F L 85 16 127/82 96 Intake and Output 02/23/24 02/24/24 02/24/24 22:59 06:59 14:59 Intake Total 1251 Output Total 200 Balance 1051 Intake: IV 1251 Output: Estimated Blood Loss 200 Other: Weight 99.5 kg
--- NOTE | 2024-02-24 19:26 | P.ANPRN ---
Procedure Note - Anesthesia - Nerve Block Performed Right Kristian Single Time Out Performed: Yes Date of Procedure: 02/24/24 Procedure Start Time: 08:37 Procedure Stop Time: 08:41 Location of Patient: PreOp Indication: Acute Post-Operative Pain, Requested by Surgeon Sedation Type: Sedate with meaningful contact maintained Preparation: Sterile Prep Position: Supine Needle Types: Pajunk Needle Gauge: 21 Ultrasound used to visualize needle placement: Yes Ultrasound used to observe medication spread: Yes Blood Aspirated: No Pain Paresthesia on Injection Noted: No Resistance on Injection: Normal Image Stored and Saved: Yes Events: Uneventful and Well Tolerated (Ropivacaine 0.5% 20 cc plus dexamethasone 4 mg)
[2024-02-24] MEDS: ASPIRIN 325 MG TAB PO SCH (22:21)
[2024-02-24] MEDS: SENNOSIDES-DOCUSATE SODIUM 1 EACH TAB PO SCH (22:30)
[2024-02-24] MEDS: ATORVASTATIN 40 MG TAB PO SCH (22:30)
[2024-02-24] MEDS: amLODIPine 5 MG TAB PO SCH (22:30)
[2024-02-24] MEDS: FINASTERIDE 5 MG TAB PO SCH (22:30)
[2024-02-24] MEDS: TAMSULOSIN 0.4 MG CAP.ER.24H PO SCH (22:31)
[2024-02-24] MEDS: LOSARTAN-HCTZ 50-12.5 MG 1 EACH TAB PO SCH (23:13)
[2024-02-25] MEDS: MULTIVITAMINS, THERA 1 EACH TAB PO SCH (07:58)
[2024-02-25] MEDS: HYDROcodone/APAP 7.5-325MG 1 EACH TAB PO PRN (07:58)
[2024-02-25 08:01] VITALS: BP 160/78; PULSE 83; RESP 16; TEMP 98.1
[2024-02-25 08:37] LABS: Basophils # (A) 0.02 X 10*3/uL (0.00-0.10); Basophils % (A) 0.2 %; Eosinophils # (A) 0.01 X 10*3/uL (0.04-0.35); Eosinophils % (A) 0.1 %; HCT 35.7 % (39.6-50.0); HGB 12.2 g/dL (13.0-17.0); Lymphocytes # (A) 0.98 X 10*3/uL (0.90-5.00); Lymphocytes % (A) 7.9 %; MCH 32.4 pg (27.0-32.0); MCHC 34.2 g/dL (32.0-37.0); MCV 94.9 FL (80.0-97.0); Mean Platelet Volume 9.5 FL (9.5-12.2); NRBC Per 100 WBC 0 X 10*3/uL (0.00-0.01); Neutrophils # (A) 10.36 X 10*3/uL (1.80-7.70); Neutrophils % (A) 83.2 %; Platelet Count 186 X 10*3/uL (140-440); RBC 3.76 X 10*6/uL (4.40-5.60); RDW 13.2 % (11.5-14.5); WBC 12.44 X 10*3/uL (4.50-10.00)
[2024-02-25 08:55] LABS: BUN/Creat Ratio 21.58 Ratio (12.00-20.00); Blood Urea Nitrogen 25.9 mg/dL (9.0-27.0); Calcium 8.6 mg/dL (8.7-10.3); Carbon Dioxide 21.5 mmol/L (21.6-31.8); Chloride 103 mmol/L (96-109); Glucose 178 mg/dL (70-110); Magnesium 1.8 mg/dL (1.5-2.4); Potassium 4.3 mmol/L (3.5-5.5); Sodium 136 mmol/L (135-145)
--- NOTE | 2024-02-25 08:55 | P.DS ---
Providers Expected date of discharge: 02/25/24 Attending physician: Lukas Ruiz Consults: 02/24/24 08:44 Consult Physician Routine Consulting Provider: Durga Gonzalez Consult Reason/Comments: medical management Do you want consulting provider notified?: Yes Primary care physician: Otto Ramon - Discharge Diagnosis(es) (1) Osteoarthritis of right hip Current Visit: Yes Status: Acute (2) S/P total right hip arthroplasty Current Visit: Yes Status: Acute Hospital Course: This is a 78-year-old male with known history of degenerative arthritis of the right hip. The patient presented for evaluation as an outpatient. After discussion and consideration patient elects to proceed with total hip arthroplasty. The patient is seen preoperatively by Dr. Ruiz and medically cleared for surgery by their primary care physician. Patient is admitted to [facility] on 02/24/2024 for total hip arthroplasty. The procedure is performed without complication or sequelae. The patient is doing well postoperatively. Labs and vital signs are stable on day of discharge. On day of discharge patient's hip incision is healing well. There is minimal erythema. There is no drainage noted at this time. There is minimal soft tissue swelling to the hip and thigh. Patient has full foot and ankle motion without difficulty or pain. Calf is soft and nontender to palpation. Neurovascular status to the right lower extremity is intact. Patient is discharged home in good condition. Please see med rec for accurate list of home medications. Plan - Discharge Summary Discharge Rx Participant: No New Discharge Prescriptions: New Aspirin 325 mg PO BID #60 tab HYDROcodone/APAP 7.5-325MG [[place] 7.5-325] 1 - 2 tab PO Q6H PRN #32 tab PRN Reason: Pain Sennosides [Senokot] 2 tab PO DAILY PRN #60 tablet PRN Reason: Constipation No Action Multivitamins, Thera [Multivitamin (formulary)] 1 tab PO DAILY Tamsulosin [Flomax] 0.4 mg PO BID Finasteride [Proscar] 5 mg PO HS Atorvastatin [Lipitor] 40 mg PO HS Acetaminophen [Tylenol Extra Strength] 500 mg PO Q6H PRN PRN Reason: Pain amLODIPine [Norvasc] 5 mg PO HS 30 Days #30 tab Losartan-Hctz 50-12.5 mg [Hyzaar 50-12.5] 1 tab PO HS traMADol HCL 50 mg PO Q6H PRN PRN Reason: Pain Aspirin [Adult Low Dose Aspirin EC] 81 mg PO DAILY Discharge Medication List Atorvastatin [Lipitor] 40 mg PO HS 12/31/17 [History] Finasteride [Proscar] 5 mg PO HS 12/31/17 [History] Multivitamins, Thera [Multivitamin (formulary)] 1 tab PO DAILY 12/31/17 [History] Tamsulosin [Flomax] 0.4 mg PO BID 12/31/17 [History] Acetaminophen [Tylenol Extra Strength] 500 mg PO Q6H PRN 12/25/23 [History] traMADol HCL 50 mg PO Q6H PRN 12/25/23 [History] Aspirin [Adult Low Dose Aspirin EC] 81 mg PO DAILY 01/07/24 [History] amLODIPine [Norvasc] 5 mg PO HS 30 Days #30 tab 01/08/24 [Rx] Losartan-Hctz 50-12.5 mg [Hyzaar 50-12.5] 1 tab PO HS 02/17/24 [History] Aspirin 325 mg PO BID #60 tab 02/24/24 [Rx] HYDROcodone/APAP 7.5-325MG [[place] 7.5-325] 1 - 2 tab PO Q6H PRN #32 tab 02/24/24 [Rx] Sennosides [Senokot] 2 tab PO DAILY PRN #60 tablet 02/24/24 [Rx] Follow up Appointment(s)/Referral(s): Lukas Ruiz DO [Doctor of Osteopathic Medicine] - 2 Weeks Activity/Diet/Wound Care/Special Instructions: Weightbearing as tolerated with walker. Leave dressing intact. Dressing may be removed by home care nurse or by patient in 7 days. Then change dressing twice daily until follow up. May shower with initial dressing intact and after removal. If dressing become saturated, please remove. Please take aspirin 325mg twice daily for 30 days to prevent blood clots. Recommend use of compression stockings daily until follow up to help prevent swelling and blood clots. May remove at night before sleeping. Please follow[facility]up with [facility] in [facility] weeks and call with any questions or concerns, . Discharge Disposition: HOME WITH HOME HEALTH SERVICES
--- NOTE | 2024-02-25 12:04 | P.PN ---
Subjective Progress Note Date: 02/25/24 Hospital course Patient is a very pleasant 78-year-old male with a past medical history of CAD status post stenting, abdominal aortic aneurysm follows Dr. Armond Briones for close monitoring, hypertension, hyperlipidemia, BPH, and hard of hearing with bilateral hearing aids. He is currently admitted under orthopedic surgery team status post right total hip arthroplasty. Surgical procedure was completed by Dr. Ruiz secondary to severe osteoarthritis of right hip. We were consulted for medical management throughout hospitalization. Physical exam: Patient seen and evaluated at bedside this morning. He was sitting up in recliner and reports doing well this morning and ready to go home. Patient was dressed and denies any complaints. He reports moderate postoperative pain and numbness/tingling throughout the muscle in his thigh, but states it is controlled and maintained with current medication regimen. Patient denies having any other complaints. He reports resolution of postoperative urinary retention and reports urinating without any difficulties. Patient tolerated breakfast well and continues to deny any episodes of nausea or vomiting. Vital signs reviewed and stable. General: Nontoxic, no distress and appears stated age. Derm: Skin warm and dry, normal coloration for ethnicity. Head: Atraumatic, normocephalic and symmetric. Eyes: EOM's intact, no lid lag, and anicteric sclera Mouth: no lip lesions, mucus membranes moist Cardiovascular: regular rate and rhythm with normal S1S2, no murmur, positive posterior tibial pulses bilaterally, and cap refill < 2 seconds. Lungs: Respirations even, regular, and unlabored on room air. Lungs CTA bila terally, no rhonchi, no rales, no wheezing, and no accessory muscle usage. Abdominal: soft, nontender to palpation, no guarding, no appreciable organomegaly Ext: No gross muscle atrophy, no edema, no contractures. Movement and sensation intact. Postop dressing/ice pack in place to right lateral hip. Neuro: Speech clear, face symmetrical and CN II-XII grossly intact with no noted focal neuro deficits Psych: Alert and oriented to person, place, time, and situation. Appropriate and pleasant affect. Assessment and Plan of Care: Postoperative urinary retention. Resolved. BPH -Patient to continue finasteride 5 mg nightly and Flomax 0.4 mg twice daily. Acute postoperative blood loss anemia. -Preoperative hemoglobin 15.9 with postoperative hemoglobin of 12.2. This is an expected and stable finding with no need for transfusion or further intervention at this time. Leukocytosis -Postoperative WBC count slightly elevated at 12.44. No signs of infection, this is expected and reactive from surgical procedure. No need for further intervention or testing at this time. Status post right total hip arthroplasty -Management per primary admitting orthopedic surgery team including DVT prop hylaxis, pain management, wound/dressing management, weightbearing, and PT/OT. -Patient currently on DVT prophylaxis with aspirin 325 mg twice daily. CAD Abdominal aortic aneurysm Hypertension Hyperlipidemia -Continue medication regimen with amlodipine 5 mg nightly and atorvastatin 40 mg nightly. Data reviewed:. -Blood pressure 160/78, heart rate 83, respiratory rate 16, temp 98.1 F, and SpO2 of 95% on room air. -Postoperative labs reviewed. CBC showing mild leukocytosis with WBC count of 12.44 and mild postoperative blood loss anemia with hemoglobin stable at 12.2. BMP showing mild hypocarbia with bicarb of 21.5 otherwise normal findings. Blood glucose 178. Magnesium 1.8. Patient is medically optimized for discharge and may be discharged once cleared by primary admitting orthopedic surgery team. Thank you for allowing us to participate in the care of this pleasant patient. Do not hesitate to contact us with questions. Someone can be reached from the [facility] hospitalist group all hours of the day at [phone] or via [employer]. This document was prepared using [employer] dictation software. Please allow for errors in regional maintenance manager while rare they do occur. Jesus Perla NP rendered care for this patient independently, reviewed the findings and plan as documented in the note above and agree with plan. I did not physically speak with or examine the patient on this date. Objective - Vital Signs Vital signs: Vital Signs Temp 98.1 F 02/25/24 07:00 Pulse 83 02/25/24 07:00 Resp 16 02/25/24 07:00 BP 160/78 02/25/24 07:00 Pulse Ox 95 02/25/24 07:00 FiO2 Intake & Output 02/24/24 02/25/24 02/25/24 18:59 06:59 18:59 Intake Total 1251 Output Total 200 Balance 1051 Weight 99.5 kg Intake: IV 1251 Output: Estimated Blood Loss 200 Other: Voiding Method Toilet # Voids 1 1 1 - Labs CBC & Chem 7: 02/25/24 02:47 02/25/24 02:47 Labs: Abnormal Lab Results - Last 24 Hours (Table) 02/25/24 Range/Units 02:47 WBC 12.44 H (4.50-10.00) X 10*3/uL RBC 3.76 L (4.40-5.60) X 10*6/uL Hgb 12.2 L (13.0-17.0) g/dL Hct 35.7 L (39.6-50.0) % MCH 32.4 H (27.0-32.0) pg Immature Gran # 0.07 H (0.00-0.04) X 10*3/uL Neutrophils # 10.36 H (1.80-7.70) X 10*3/uL Eosinophils # 0.01 L (0.04-0.35) X 10*3/uL
[2024-02-25] MEDS: LACTULOSE 20 GM/30 ML CUP PO ONE (12:08)
== END 2024-02-25 12:46 | disposition home health service (06) ==
LOC: OR 07:06 → 4SSUR 13:10 → OR 02-25 12:46
PROVIDERS: ATTEND Orthopaedic Surgery
DX: M16.11 Unilateral primary osteoarthritis, right hip (principal); I10 Essential (primary) hypertension
CPT/HCPCS: 97161; 97166; 64999; 80048; 83735; 85025; 73501; 27130; C1776; S0138; J2250; J1100; J0690 ×3; J2405; J2795; J1171